=== PATIENT | female | born 1990 | race Two or more races ===

== ENCOUNTER 2025-01-10 09:49 | Emergency (ER) | payer MEDICAID, SELFPAY ==
[2025-01-10 09:59] VITALS: BP 116/74; PULSE 70; RESP 16; TEMP 36.6; O2SAT 100; BMI 28.5
--- NOTE | 2025-01-10 10:18 | XR_ITS ---
Examination: Pelvic ultrasound, transabdominal, complete Technique: Transabdominal ultrasound of the pelvis performed using grayscale imaging Date and time of exam: January 10, 2025 1026 hours INDICATIONS: Vaginal bleeding beginning 2 weeks ago with pelvic pain beginning 4 days ago FINDINGS: Uterus 8.0 x 5.2 x 6.5 cm Complex fluid in the cervical region 4.2 x 1.9 x 4.1 cm Uterine fundal endometrial stripe 0.9 cm Right ovary obscured by bowel gas Left ovary 3.4 cm arterial flow 26 mm cyst IMPRESSION: Findings suspicious for retained products of conception Recommend transvaginal pelvic sonography follow-up
--- NOTE | 2025-01-10 10:19 | PD.EDRME ---
Rapid Medical Screening Exam RME Arrival date/time: 01/10/25 09:49 34-year-old female presents emergency department today complains of vaginal bleeding ongoing for the last couple weeks Chief Complaint: Vaginal Bleeding Vital signs: Vital Signs Temperature 97.8 F 01/10/25 09:59 Pulse Rate 70 01/10/25 09:59 Respiratory Rate 16 01/10/25 09:59 Blood Pressure 116/74 01/10/25 09:59 Pulse Oximetry (%) 100 01/10/25 09:59 Oxygen Delivery Method Room Air 01/10/25 09:59
[2025-01-10 11:18] LABS: Basophils % (Auto) 0 % (0-2.5); Eosinophils # (Auto) 0.1 Thou/mm3 (0.0-0.5); Eosinophils % (Auto) 1 % (0-10); Hemoglobin 9.8 g/dL (12.0-16.0); Immature Granulocytes % (Auto) 0 % (0-0); Immature Granulocytes Auto 0.02 Thou/mm3 (0.00-0.00); Lymphocytes # (Auto) 2.8 Thou/mm3 (1.0-4.8); Lymphocytes % (Auto) 42 % (10-50); Mean Corpuscular HGB Conc 30.6 g/dl (31.0-37.0); Mean Corpuscular Hemoglobin 22.4 pg (25.0-35.0); Mean Corpuscular Volume 73 fL (80-100); Monocytes # (Auto) 0.5 Thou/mm3 (0.0-0.8); Monocytes % (Auto) 7 % (0-12); Neutrophils # (Auto) 3.2 Thou/mm3 (1.8-7.7); Neutrophils % (Auto) 49 % (37-80); Nucleated Red Blood Cell % 0 /100 WBC (0); Platelet Count 337 Thou/mm3 (140-440); RDW Standard Deviation 42.3 fL (36.4-46.3); Red Blood Count 4.37 Miln/mm3 (4.00-5.20); White Blood Count 6.5 Thou/mm3 (3.6-11.0)
[2025-01-10 11:43] LABS: Collection Type, Urine Clean Catch; WBC,Urine 0 /hpf (0-5)
[2025-01-10 11:47] LABS: Alanine Aminotransferase 19 U/L (10-49); Albumin, Serum 4.4 gm/dL (3.5-5.0); Albumin/Globulin Ratio 1.4 (1.2-2.2); Alkaline Phosphatase 60 U/L (46-116); Anion Gap 8 (7-16); Aspartate Amino Transferase 23 U/L (0-34); BUN/Creatinine Ratio 8 Ratio (12-20); Bilirubin,Total 0.3 mg/dL (0.3-1.2); Blood Urea Nitrogen < 5 mg/dL (9-23); Calcium 9.2 mg/dL (8.3-10.6); Calcium (Corrected) 9.2 mg/dL (8.5-10.1); Carbon Dioxide 27.7 mMol/L (20.0-31.0); Chloride 105 mMol/L (98-107); Creatinine (Component) 0.6 mg/dL (0.6-1.3); Estimated Creatinine Clearance 127.7 mL/min (>60); Globulin 3.2 gm/dL (2.3-3.5); Glucose 88 mg/dL (74-106); Lipase 43 U/L (12-53); Osmolality,Calculated 277 (275-295); Potassium 3.6 mMol/L (3.4-5.1); Sodium 141 mMol/L (136-145); Total Protein 7.6 gm/dL (5.7-8.2); eGFR > 60 See Note
[2025-01-10 12:01] LABS: HCG Qualitative,Urine Negative
[2025-01-10 12:25] LABS: Bilirubin,Urine Negative (Negative); Blood,Urine Trace (Negative); Clarity,Urine Clear (Clear/Hazy); Color,Urine Yellow (Lt Yel-Yel); Culture Indicated,Urine Not Indicated; Glucose, Urine Negative (Negative); Ketones,Urine Negative (Negative); Leukocyte Esterase,Urine Negative (Negative); Nitrite,Urine Negative (Negative); Protein,Urine Trace (Neg - Trace); RBC,Urine 24 /hpf (0-3); Specific Gravity,Urine 1.027 (1.001-1.035); Squamous Epithelial Cell,Urine 1 /hpf (0-5); Urobilinogen,Urine Negative mg/dL (0.0-1.0)
[2025-01-10 13:46] VITALS: BP 135/78; PULSE 68; RESP 16; TEMP 36.9; O2SAT 100
--- NOTE | 2025-01-10 14:12 | PD.EDVAGBL ---
ED OB Contraction Preg RMI/HPI General Chief complaint: Vaginal Bleeding Stated complaint: HEAVY VAGINAL BLEEDING X 2 WKS WITH PAIN X 1 WK Time Seen by Provider: 01/10/25 13:52 Arrival date/time: 01/10/25 09:49 RME / HPI RME / HPI Narrative: 34-year-old female presents emergency department today complains of vaginal bleeding ongoing for the last couple weeks associated with pelvic cramping since last night. Severity mild. Patient denies any being . Her last menstruation was 2 weeks ago. Patient is ambulatory Related Data Previous Rx's ?Medication ?Instructions ?Recorded ondansetron HCl 4 mg tablet 4 mg PO Q6H PRN nausea and 11/09/20 (Zofran) vomiting #30 tabs metoclopramide HCl 10 mg tablet 10 mg PO Q6H PRN nausea and 09/29/22 (Reglan) vomiting #14 tabs omeprazole 20 mg capsule,delayed 20 mg PO QDAY #30 caps 09/29/22 release Allergies Allergy/AdvReac Type Severity Reaction Status Date / Time No Known Allergies Allergy Verified 09/29/22 09:09 Review of Systems Review of Systems Narrative Review of Systems: Review of system reviewed and within normal limits except mentioned in HPI ED Exam Narrative Physical exam: VITAL SIGNS: Reviewed. GENERAL APPEARANCE: Alert and interactive, follows commands, no acute distress, HEAD AND FACE: Non-traumatic. ENT: PERRL, pink conjunctivitis, eyelid no trauma, Mucous membrane moist. NECK: Supple, nontender, no nuchal rigidity. CHEST: No tenderness, no crepitus, no paradoxical movement, no retractions. LUNGS: Clear, well ventilated, symmetric, no rales, no wheezing, no ronchi, no stridor, good breath sounds bilaterally. HEART: Regular rate, regular rhythm, no murmur, no gallops. ABDOMEN: Soft, positive bowel sounds, nondistended, no guarding, nontender, no rebound, no masses, RECTAL: Deferred. GENITAL: Deferred. NEUROLOGICAL: Gross motor function intact sensory function intact, Appropriate for age. MUSCULOSKELETAL: low back nontender, full range of motion. EXTREMITIES: Nontender, full range of motion. SKIN: Color pink, dry, no rash, no lacerations, no abrasions, no contusions. LYMPHATICS: Deferred. Course Quality Measures none Orders Category Date Time Status US pelvic complete Stat Exams 01/10/25 10:18 Completed CBC Stat Lab 01/10/25 10:47 Completed Comprehensive Metabolic Panel Stat Lab 01/10/25 10:47 Completed HCG Qualitative,Urine Stat Lab 01/10/25 11:33 Completed Lipase Stat Lab 01/10/25 10:47 Completed UA, C/S IF [Urinalysis, C/S if Indicated] Stat Lab 01/10/25 11:33 Completed Vital Signs Vital signs: Vital Signs Temperature 97.8 F 01/10/25 09:59 Pulse Rate 70 01/10/25 09:59 Respiratory Rate 16 01/10/25 09:59 Blood Pressure 116/74 01/10/25 09:59 Pulse Oximetry (%) 100 01/10/25 09:59 Oxygen Delivery Method Room Air 01/10/25 09:59 Vaginal Bleeding [facility] Narrative MDM Narrative: 34-year-old female presents emergency department today complains of vaginal bleeding ongoing for the last couple weeks associated with pelvic cramping since last night. Severity mild. Patient denies any being . Her last menstruation was 2 weeks ago. Patient is ambulatory Patient workup is significant for hemoglobin of 9.8, hematocrit of 32, hCG is negative for . Ultrasound of the is suspicious for possible retained products of conception. Results discussed with the patient. Patient told me that she is going to see her [facility] in [place] tomorrow morning. Patient appears nontoxic and hemodynamically stable. Patient discharged home and instructed to follow-up with primary care provider in 24 to 48 hours. Instructed to return to the emergency department immediately if worsening of symptoms Patient data External records reviewed:: None Clinical information provided by:: patient Social determinants that could affect healthcare access:: none Patient has the following chronic illnesses:: History of anemia How is presenting disease/condition affected by chronic disease/condition?: uneffected by Evaluation data The following diagnostics were reviewed and interpreted by me:: lab results and radiology exam(s) Lab and/or radiology exams considered but not ordered:: None Interpretation Summary: see results in MDM Medications / Prescriptions Medications or Prescriptions considered but not ordered:: None Medication administrations:: None Consultations Consultation(s) initiated? (list below): No Diagnosis Vaginal Bleeding Differential Diagnosis: missed , threatened and vaginal bleeding Most likely diagnosis given after review of the tests above:: Vaginal bleeding Admission Indicated Admission indicated?: not indicated Admission Request Was there a request for admission?: No Disposition Plan Disposition Plan: Discharge Discharge Attestation Discharge Attestation: The patient was given an opportunity to ask questions and understood the discharge instructions. Discharge instructions specifically effects, indications for sooner follow up or return to the emergency department, and the expected course of current diagnosis. Patient condition: Stable Discharge Plan Plan Patient Disposition: HOME (Self Care) Disposition Comment: stable Prescriptions/Referrals Prescriptions/Med Rec: No Action ondansetron HCl [Zofran] 4 mg tablet 4 mg PO Q6H PRN (Reason: nausea and vomiting) Qty: 30 0RF metoclopramide HCl [Reglan] 10 mg tablet 10 mg PO Q6H PRN (Reason: nausea and vomiting) Qty: 14 0RF omeprazole 20 mg capsule,delayed release(DR/EC) 20 mg PO QDAY Qty: 30 0RF Referrals: Yoel Law MD [Primary Care Provider] - In 1 week Problem List Clinical Impression: Vaginal bleeding Patient/Caregiver Discharge Instructions Discharge Activity: activity as tolerated Education Materials: ED Dysfunctional Uterine Bleeding Additional Instructions: Thank you for the opportunity for serving you today. You are stable for discharged . You are advised to: Follow-up with your [facility] in [place] tomorrow Return to ED for worsening of symptoms Increase oral fluids Print Language: Serbian Stand Alone Forms: Mary Award Info., Patient Portal Info Letter GIO/JULIA Supervising Physician GIO/JULIA Supervising Physician: MD Arian
== END 2025-01-10 16:14 | disposition home or self-care (01) ==
PROVIDERS: Nurse Practitioner Primary Care; Emergency Provider Emergency Medicine; PCP Obstetrics & Gynecology
DX: N93.9 Abnormal uterine and vaginal bleeding, unspecified (principal)
CPT/HCPCS: 36415; 76856; 80053; 81001; 81025; 83690; 85025; 99284